=== PATIENT | male | born 1980 | race Two or more races ===

== ENCOUNTER 2017-09-13 22:10 | Emergency (ER) | payer OTHER ==
[~2017-09-13] VITALS: Ht 177.8 cm; Wt 127.0 kg
[~2017-09-13 22:10] MED LIST: CIPRO500 MG PO; FLAGYL500MG PO
[2017-09-14] MEDS ORDERED: LEVSIN/SL0.125 MG SL (08:18)
[2017-09-14] MEDS ORDERED: CIPRO500 MG PO (08:18)
== END 2017-09-14 08:30 | disposition home or self-care (01) ==
LOC: ER 22:10
DX: R10.84 Generalized abdominal pain (principal)

== ENCOUNTER → 2017-11-07 | Day surgery (SDC) | payer OTHER ==
[~2017-11-07] MED LIST changes: +LEVSIN/SL0.125 MG SL
== END | disposition home or self-care (01) ==
LOC: ADM 10-31 13:00 → AMB-ENDOS 07:00
DX: D12.8 Benign neoplasm of rectum (principal); K57.30 Diverticulosis of large intestine without perforation or abscess without bleeding; K64.8 Other hemorrhoids

== ENCOUNTER 2018-08-20 17:05 | Inpatient (IN) | payer OTHER ==
[~2018-08-20] VITALS: Ht 175.3 cm; Wt 127.0 kg
== END 2018-08-26 11:01 | disposition home or self-care (01) | DRG 331 ==
LOC: O/R 08-23 05:41 → SURH 08-23 09:15 → SURG 08-23 16:04 → SURH 08-23 17:04 → SURG 08-26 11:01
PROVIDERS: ADMIT Colon & Rectal Surgery
PROC: 0DJD8ZZ Inspection of Lower Intestinal Tract, Via Natural or Artificial Opening Endoscopic (ICD-10-PCS; 2018-08-23)
PROC: 0DTN4ZZ Resection of Sigmoid Colon, Percutaneous Endoscopic Approach (ICD-10-PCS; principal; 2018-08-23 09:15)
DX: K57.32 Diverticulitis of large intestine without perforation or abscess without bleeding (principal); E66.8 Other obesity; G47.33 Obstructive sleep apnea (adult) (pediatric)

== ENCOUNTER 2018-08-31 19:07 | Inpatient (IN) | payer OTHER ==
[~2018-08-31] VITALS: Ht 170.2 cm; Wt 122.5 kg
[2018-08-31] MEDS ORDERED: TRAMADOL HCL50 MG (19:37)
[2018-08-31] MEDS ORDERED: PROBIOTIC1 EAC4 (19:37)
== END 2018-09-09 11:12 | disposition home or self-care (01) | DRG 393 ==
LOC: ER 19:07 → SEC-K 09-01 12:49 → SURH 09-01 12:49
PROVIDERS: ADMIT Colon & Rectal Surgery
PROC: BW21ZZZ Computerized Tomography (CT Scan) of Abdomen and Pelvis (ICD-10-PCS; 2018-08-31)
PROC: BW2GZZZ Computerized Tomography (CT Scan) of Pelvic Region (ICD-10-PCS; 2018-09-02)
PROC: 8E0ZXY6 Isolation (ICD-10-PCS; 2018-09-03)
PROC: 02HV33Z Insertion of Infusion Device into Superior Vena Cava, Percutaneous Approach (ICD-10-PCS; principal; 2018-09-04)
PROC: B54NZZZ Ultrasonography of Left Upper Extremity Veins (ICD-10-PCS; 2018-09-06)
PROC: B54MZZZ Ultrasonography of Right Upper Extremity Veins (ICD-10-PCS; 2018-09-07)
DX: K91.89 Other postprocedural complications and disorders of digestive system (principal); A41.02 Sepsis due to Methicillin resistant Staphylococcus aureus; J98.11 Atelectasis; I82.612 Acute embolism and thrombosis of superficial veins of left upper extremity; G83.89 Other specified paralytic syndromes; D64.89 Other specified anemias; E66.01 Morbid (severe) obesity due to excess calories; K57.30 Diverticulosis of large intestine without perforation or abscess without bleeding; Z79.01 Long term (current) use of anticoagulants

== ENCOUNTER 2024-03-19 17:27 | Emergency (ER) | payer OTHER ==
[~2024-03-19] VITALS: Ht 180.3 cm; Wt 127.0 kg
[~2024-03-19 17:27] MED LIST changes: +PROBIOTIC1 EAC4; +TRAMADOL HCL50 MG
[2024-03-19] MEDS ORDERED: KETOROLAC TROMETHAMINE 30 MG VIAL IV STA (19:10)
[2024-03-19] MEDS ORDERED: DIPHENHYDRAMINE HCL 50 MG/ML VIAL 1ML IM STA (19:11)
[2024-03-19] MEDS ORDERED: HALOPERIDOL LACTATE 5 MG/ML AMPUL IM STA (19:11)
[2024-03-19] MEDS ORDERED: KETOROLAC TROMETHAMINE 30 MG VIAL ONE (19:21)
[2024-03-19] MEDS ORDERED: DIPHENHYDRAMINE HCL 50 MG/ML VIAL 1ML ONE (19:21)
[2024-03-19] MEDS ORDERED: HALOPERIDOL LACTATE 5 MG/ML AMPUL ONE (19:21)
== END 2024-03-19 21:40 | disposition home or self-care (01) ==
LOC: ER 17:29
DX: G43.909 Migraine, unspecified, not intractable, without status migrainosus (principal)